=== PATIENT | female | born 1955 | race Caucasian/White ===

== ENCOUNTER → 2017-06-19 | Outpatient (CLI) | payer MEDICARE, OTHER | LOC: MC.RAD 11:32 | DX: Z12.31 Encounter for screening mammogram for malignant neoplasm of breast (principal); N63.21 Unspecified lump in the left breast, upper outer quadrant ==

== ENCOUNTER → 2017-07-13 | Outpatient (CLI) | payer MEDICARE, OTHER | LOC: MC.RAD 10:53 | DX: N63.21 Unspecified lump in the left breast, upper outer quadrant (principal) ==

== ENCOUNTER 2018-06-29 05:45 | Day surgery (SDC) | payer MEDICARE, OTHER ==
[2018-06-29] VITALS (13 sets, daily range): BP systolic 100–132; BP diastolic 39–64; PULSE 60–68; TEMP 97.8
[~2018-06-29] VITALS: Ht 160.1 cm; Wt 99.0 kg
[2018-06-29 07:01] LABS: HEMATOCRIT 37.2 % (37.0-47.0); HEMOGLOBIN 12.5 g/dl (12.5-16.0); MEAN CELL VOLUME 89 fl (80.0-100.0); MEAN CORPUSCULAR HEMOGLOBIN 30 pg (27.0-31.0); MEAN CORPUSCULAR HGB CONC 34 g/dl (33.0-37.0); MEAN PLATELET VOLUME 10.3 fl (7.4-10.4); PLATELET COUNT 176 K/mm3 (130-400); RED BLOOD COUNT 4.18 M/mm3 (4.10-5.30); REDCELL DISTRIBUTION WIDTH-CV 12.3 % (11.5-14.5)
[2018-06-29 07:06] LABS: INR 0.9 (0.8-3.0); PROTHROMBIN TIME 10.7 SECONDS (9.7-12.8)
[2018-06-29 07:21] LABS: CALCIUM 9.1 mg/dL (8.4-10.2); CREATININE, serum 0.5 mg/dL (0.52-1.25); POTASSIUM 3.9 mmol/L (3.4-5.0)
[2018-06-29] MEDS ORDERED: NORVASC 5MG5 MG/TAB PO (07:30)
[2018-06-29] MEDS ORDERED: LIPITOR 10MG10 MG PO (07:31)
[2018-06-29] MEDS ORDERED: ASPIRIN E.C. 8181 MG PO (07:31)
[2018-06-29] MEDS ORDERED: ZYRTEC 10MG10 MG PO (07:32)
[2018-06-29] MEDS ORDERED: HIBICLENS4% TP (07:32)
[2018-06-29] MEDS ORDERED: NEURONTIN300 MG/CAP PO ×2 (07:40→07:41)
[2018-06-29] MEDS ORDERED: GLUCOTROL 5M5 MG/TAB PO ×2 (07:42)
[2018-06-29] MEDS ORDERED: TOUJEO300 U/ML SQ (07:49)
[2018-06-29] MEDS ORDERED: ATARAX 10MG10 MG/TAB PO (07:49)
[2018-06-29] MEDS ORDERED: CLARITIN 1010 MG/TAB PO (07:50)
[2018-06-29] MEDS ORDERED: SYNTHROID0.137 MG PO (07:50)
[2018-06-29] MEDS ORDERED: COZAAR 50MG50 MG/TAB PO (07:51)
[2018-06-29] MEDS ORDERED: GLUCOPHAGE500 MG/TAB PO (07:52)
[2018-06-29] MEDS ORDERED: MOBIC15 MG PO ×2 (07:52→08:03)
[2018-06-29] MEDS ORDERED: LOPRESSOR100 MG PO (08:02)
[2018-06-29] MEDS ORDERED: BACTROBAN NASA0.9 GM NS (08:04)
[2018-06-29] MEDS ORDERED: NYAMYC100000 U/G TP (08:04)
[2018-06-29] MEDS ORDERED: PRILOSEC 20MG20 MG PO (08:06)
[2018-06-29] MEDS ORDERED: EFFEXOR-XR150 MG PO (08:10)
[2018-06-29] MEDS ORDERED: DESYREL 50MG50 MG PO (08:10)
[2018-06-29] MEDS ORDERED: VITAMIN D31000 I1 PO (08:11)
--- NOTE | 2018-06-29 08:43 | NUR ---
Pt to procedure,report to TAL Zarate.
--- NOTE | 2018-06-29 09:01 | NUR ---
ALLENS TEST POSITIVE. ALL MEDS GIVEN WITH VERBAL ORDER FROM MD HAYES. SEE MERGE FOR ADMIN TIMES.
[2018-06-29] MEDS ORDERED: ZEBETA10 MG PO (09:43)
[2018-06-29] MEDS ORDERED: LIPITOR 40MG TA40 MG PO (09:44)
[2018-06-29] MEDS ORDERED: NITROSTAT0.4 MG/TAB SL (09:45)
--- NOTE | 2018-06-29 13:45 | NUR ---
Discharge instructions given to pt.Pt verbalizes understanding.INT removed,catheter tip intact.pt escorted out via wheelchair by this nurse.
== END 2018-06-29 14:10 | disposition home or self-care (01) ==
LOC: COL.CAR 05:45
PROVIDERS: Internal Medicine Cardiovascular Disease
DX: I25.10 Atherosclerotic heart disease of native coronary artery without angina pectoris (principal); Z82.49 Family history of ischemic heart disease and other diseases of the circulatory system; E78.2 Mixed hyperlipidemia; E11.9 Type 2 diabetes mellitus without complications; Z79.4 Long term (current) use of insulin; I10 Essential (primary) hypertension; Z87.891 Personal history of nicotine dependence; E03.9 Hypothyroidism, unspecified; G47.33 Obstructive sleep apnea (adult) (pediatric); Z91.19 Patient's noncompliance with other medical treatment and regimen; K21.9 Gastro-esophageal reflux disease without esophagitis; D50.9 Iron deficiency anemia, unspecified; M47.9 Spondylosis, unspecified; Z79.82 Long term (current) use of aspirin; Z79.899 Other long term (current) drug therapy; L40.9 Psoriasis, unspecified; Z88.2 Allergy status to sulfonamides; Z91.040 Latex allergy status; F41.9 Anxiety disorder, unspecified; K57.90 Diverticulosis of intestine, part unspecified, without perforation or abscess without bleeding; A60.00 Herpesviral infection of urogenital system, unspecified; Z80.9 Family history of malignant neoplasm, unspecified; Z84.1 Family history of disorders of kidney and ureter; Z83.49 Family history of other endocrine, nutritional and metabolic diseases; Z84.89 Family history of other specified conditions
CPT/HCPCS: C1769; J1644; J2250; J3010; Q9967

== ENCOUNTER 2018-07-01 14:48 | Emergency (ER) | payer MEDICARE, OTHER ==
[~2018-07-01] VITALS: Ht 160 cm; Wt 99.5 kg
[~2018-07-01 14:48] MED LIST: ASPIRIN E.C. 8181 MG PO; ATARAX 10MG10 MG/TAB PO; BACTROBAN NASA0.9 GM NS; CLARITIN 1010 MG/TAB PO; COZAAR 50MG50 MG/TAB PO; DESYREL 50MG50 MG PO; EFFEXOR-XR150 MG PO; GLUCOPHAGE500 MG/TAB PO; GLUCOTROL 5M5 MG/TAB PO; HIBICLENS4% TP; LIPITOR 10MG10 MG PO; LIPITOR 40MG TA40 MG PO; LOPRESSOR100 MG PO; MOBIC15 MG PO; NEURONTIN300 MG/CAP PO; NITROSTAT0.4 MG/TAB SL; NORVASC 5MG5 MG/TAB PO; NYAMYC100000 U/G TP; PRILOSEC 20MG20 MG PO; SYNTHROID0.137 MG PO; TOUJEO300 U/ML SQ; VITAMIN D31000 I1 PO; ZEBETA10 MG PO; ZYRTEC 10MG10 MG PO
[2018-07-01 14:56] VITALS: TEMP 97.8
[2018-07-01 15:37] LABS: BASO % 0.4 % (0.0-2.0); EOS # 0.2 (0.0-0.7); EOS % 3.2 % (0-4.0); GRAN % 66.2 % (42.2-75.2); HEMATOCRIT 38.5 % (37.0-47.0); HEMOGLOBIN 13.1 g/dl (12.5-16.0); LYMPH # 1.7 (1.2-3.4); LYMPH % 22.6 % (20.0-51.0); MEAN CELL VOLUME 89 fl (80.0-100.0); MEAN CORPUSCULAR HEMOGLOBIN 30 pg (27.0-31.0); MEAN CORPUSCULAR HGB CONC 34 g/dl (33.0-37.0); MEAN PLATELET VOLUME 10.5 fl (7.4-10.4); MONO # 0.6 (0.1-0.6); MONO % 7.3 % (1.7-9.3); PLATELET COUNT 180 K/mm3 (130-400); RED BLOOD COUNT 4.33 M/mm3 (4.10-5.30); REDCELL DISTRIBUTION WIDTH-CV 12.2 % (11.5-14.5)
[2018-07-01 15:43] LABS: BILIRUBIN,TOTAL 0.4 mg/dL (0.0-1.0); CALCIUM 9.2 mg/dL (8.4-10.2); CREATININE, serum 0.5 mg/dL (0.52-1.25); POTASSIUM 4.2 mmol/L (3.4-5.0); TOTAL PROTEIN 6.9 gm/dL (6.4-8.2)
[2018-07-01 16:13] LABS: THYROID STIMULATING HORMONE 1.39 uIU/mL (0.465-4.680)
[2018-07-01 17:08] VITALS: BP 145/66; PULSE 76
== END 2018-07-01 17:10 | disposition home or self-care (01) ==
LOC: COL.ER 14:48
PROVIDERS: Emergency Medicine
DX: H81.10 Benign paroxysmal vertigo, unspecified ear (principal); Z79.82 Long term (current) use of aspirin; Z98.890 Other specified postprocedural states
CPT/HCPCS: J7040

== ENCOUNTER → 2018-07-04 | Outpatient (CLI) | payer MEDICARE, OTHER | LOC: MC.RAD 06-26 14:00 | DX: Z12.31 Encounter for screening mammogram for malignant neoplasm of breast (principal) ==

== ENCOUNTER → 2018-08-31 | Outpatient (CLI) | payer MEDICARE, OTHER | LOC: COL.RAD 09:54 | DX: M43.12 Spondylolisthesis, cervical region (principal); Z98.1 Arthrodesis status ==

== ENCOUNTER 2018-10-17 15:30 | Outpatient (RCR) | payer MEDICARE, OTHER | END 2018-12-25 09:16 | disposition home or self-care (01) | LOC: WSPT 15:30 | DX: M43.16 Spondylolisthesis, lumbar region (principal); M48.061 Spinal stenosis, lumbar region without neurogenic claudication ==

== ENCOUNTER → 2018-12-28 | Outpatient (CLI) | payer MEDICARE, OTHER | LOC: COL.PUL 09:49 | DX: R06.02 Shortness of breath (principal); Z87.891 Personal history of nicotine dependence | CPT/HCPCS: J7674 ==